=== PATIENT | male | born 1955 | race Caucasian/White ===

== ENCOUNTER 2016-12-24 15:20 | Emergency (ER) | payer SELFPAY ==
[2016-12-24 18:32] VITALS: BP 160/87
== END 2016-12-24 17:45 | disposition home or self-care (01) ==
LOC: ED 15:20
DX: S53.105A Unspecified dislocation of left ulnohumeral joint, initial encounter (principal); S52.501A Unspecified fracture of the lower end of right radius, initial encounter for closed fracture; M54.2 Cervicalgia; W17.89XA Other fall from one level to another, initial encounter; Y93.89 Activity, other specified; Y92.89 Other specified places as the place of occurrence of the external cause; Y99.8 Other external cause status
CPT/HCPCS: J1170; J2405; J2704; Q0092